=== PATIENT | male | born 1965 | race Caucasian/White ===

== ENCOUNTER → 2022-09-15 12:02 | Outpatient (CLI) | payer SELFPAY ==
--- NOTE | ~2022-09-15 | XR_ITS ---
XR chest 2V DATE: 09/15/2022 13:06 INDICATION: Subacute cough TECHNIQUE: PA and lateral chest COMPARISON: None FINDINGS: Normal heart size. No hilar or mediastinal enlargement. Mild to moderate bilateral pulmonar y hyperinflation. No pulmonary infiltrate or consolidation, pleural effusion or pulmonary vascular co ngestion or pneumothorax is detected. IMPRESSION: Mild to moderate hyperinflation; otherwise no active cardiopulmonary disease Reviewed, dictated and finalized at location A. K SKINNER IMPRESSION: Mild to moderate hyperinflation; otherwise no active cardiopulmonar y disease
== END ==
PROVIDERS: PCP Internal Medicine
DX: R05.2 Subacute cough (principal); R91.8 Other nonspecific abnormal finding of lung field
CPT/HCPCS: 71046